=== PATIENT | female | born 1945 | race Asian ===

== ENCOUNTER 2016-08-04 08:06 | Day surgery (SDC) | payer OTHER ==
--- NOTE | 2016-08-03 13:18 | PREOPHP ---
DATE OF ADMISSION: 08/04/2016 HISTORY OF PRESENT ILLNESS: This 71-year-old patient is admitted for elective cataract surgery of t he right eye. Patient has had progressive deterioration of vision in both eyes and previously under went cataract surgery of the left eye in December 2015. The patient denies prior history of eye dis ease or injury. She does have a history of hypertension, asthma, kidney disease, and gout. CURRENT MEDICATIONS: Include: 1. Losartan. 2. Potassium chloride. 3. Allopurinol. 4. Carvedilol. 5. Iron sulfate. 6. Lipitor. 7. Advair. ALLERGIES: PATIENT IS ALLERGIC TO LISINOPRIL. PHYSICAL EXAMINATION: Visual acuity with best correction is 20/80 in the right eye and 20/30 in the left eye. Slit lamp examination reveals nuclear sclerotic and posterior subcapsular cataract in th e right eye and a posterior chamber intraocular lens in the left eye. Applanation tonometry is 16 m mHg. Examination of the retina is within normal limits. DIAGNOSIS: Cataract, right eye. PLAN: Cataract extraction with lens implant, right eye. The risks and alternatives to the surgery have been discussed with the patient as well as the hope for improvement of visual acuity leading to a greater ability to perform activities of daily living. The patient understands this and agrees t o proceed with surgery. Dictated By: HOLLY VERA/IKE Conf#: [id number] DID#: [id number]
[~2016-08-04] VITALS: Ht 149.9 cm; Wt 41.2 kg
[~2016-08-04 08:06] MED LIST: ALLO100T PO; AMLO5TAB4 PO; CARV12.579 PO; DIPH25CA42 PO; FER325 PO; FLUT1AER INHALATION; LOSA50TA6 PO
[2016-08-04] MEDS ORDERED: BUDE6HFA INHALATION (08:53)
[2016-08-04] MEDS ORDERED: ATOR20TA38 PO (08:54)
[2016-08-04] MEDS ORDERED: CLON-379 PO (08:55)
[2016-08-04] MEDS ORDERED: KENC1 TOP (08:55)
[2016-08-04] MEDS ORDERED: CLOT15CR6 TOP (08:55)
[2016-08-04 09:23] VITALS: Ht 149.9 cm; Wt 41.2 kg
[2016-08-04 09:25] VITALS: BP 145/67; PULSE 75; RESP 18
[2016-08-04] MEDS ORDERED: CYCLOPENTOLATE/PHENYLEPH 2 ML OPH OPER SCH (09:30)
[2016-08-04] MEDS ORDERED: TROPICAMIDE 1% 2 ML OPH OPER SCH (09:30)
[2016-08-04] MEDS ORDERED: DICLOFENAC 0.1% 2.5 ML OPH OPER SCH (09:30)
[2016-08-04] MEDS ORDERED: CIPROFLOXACIN 0.3% 2.5 ML OPH OPER SCH (09:30)
[2016-08-04] MEDS ORDERED: CEFAZOLIN 1 GM INJ ONE (09:44)
[2016-08-04] MEDS ORDERED: LIDOCAINE 4% (MPF) 5 ML INJ ONE (09:44)
[2016-08-04] MEDS ORDERED: GENTAMICIN 80 MG INJ ONE (09:44)
[2016-08-04] MEDS ORDERED: CARBACHOL 0.01% 1.5 ML OPH INJ ONE (09:44)
[2016-08-04] MEDS ORDERED: DEXAMETHASONE 4 MG/ML 1 ML INJ ONE (09:44)
[2016-08-04] MEDS ORDERED: EPINEPHrine 1 MG INJ ONE (09:44)
[2016-08-04] MEDS ORDERED: HYALURONATE/CHONDROITIN 1ML OPH INJ ONE (09:45)
[2016-08-04] MEDS ORDERED: CARBACHOL 0.01% 1.5 ML OPH INJ IO ONE (09:51)
[2016-08-04] MEDS ORDERED: CEFAZOLIN 1 GM INJ INJ ONE (09:51)
[2016-08-04] MEDS ORDERED: HYALURONATE/CHONDROITIN 1ML OPH INJ IO ONE (09:51)
[2016-08-04] MEDS ORDERED: DEXAMETHASONE 4 MG/ML 1 ML INJ INJ ONE (09:51)
[2016-08-04] MEDS ORDERED: PROPOFOL 20 ML ONE (09:53)
[2016-08-04] MEDS ORDERED: hydrALAzine 20 MG INJ IV PRN (10:30)
[2016-08-04] MEDS ORDERED: ONDANSETRON 4 MG INJ IV PRN (10:30)
[2016-08-04] MEDS ORDERED: HYDROmorphONE (0.2 MG/ML) 10ML SYG IV PRN ×3 (10:30)
[2016-08-04] MEDS ORDERED: FENTAnyl 50 MCG/ML VIAL IV PRN ×2 (10:30)
[2016-08-04] MEDS ORDERED: LABETALOL HCL 20MG INJ IV PRN (10:30)
[2016-08-04] MEDS ORDERED: MEPERIDINE 25 MG INJ IV PRN (10:30)
[2016-08-04 10:35] VITALS: BP 162/67; PULSE 77; RESP 20
[2016-08-04 10:40] VITALS: BP 157/65; PULSE 72; RESP 12
[2016-08-04 10:44] VITALS: BP 156/66; PULSE 72; RESP 13
[2016-08-04 11:17] VITALS: BP 158/66; PULSE 77; RESP 16
--- NOTE | 2016-08-04 11:40 | OPR ---
DATE OF OPERATION: 08/04/2016 PREOPERATIVE DIAGNOSIS: Cataract, right eye. POSTOPERATIVE DIAGNOSIS: Cataract, right eye. OPERATION PERFORMED: Cataract extraction with lens implant, right eye. SURGEON: Holly Nguyen MD ANESTHESIA: Local standby. ANESTHESIOLOGIST: Dr. Grullon. OPERATION: Phacoemulsification with posterior chamber intraocular lens implant, right eye. PROCEDURE: The patient was brought to the operating room and placed on the table with an IV in plac e and the patient attached to an elevator examiner. Oxygen was given via face mask. After some intravenous sedation was administered, local anesthesia was given using Xylocaine 2% with epinephrine, mixed with Marcaine 0.5%. This was given in a lid block and retrobulbar injection. The patient was then prepped and draped in the usual sterile manner. A wire lid speculum was inserted between the lids of the right eye. A Superblade was used to enter t he anterior chamber at the corneoscleral limbus at the 10:30 o'clock position. A separate incision w as made using a 3.0-mm keratome which entered the corneoscleral junction at the 12 o'clock position. Through this 3-mm opening, an irrigating cystitome was introduced into the anterior chamber. The ch naz was filled with Viscoat and an anterior capsulotomy was performed. Balanced salt solution was then used for hydrodissection of the lens. A phacoemulsification handpiece was then brought into th e field and introduced into the anterior chamber. The lens nucleus was emulsified using a deep groov e and cracking the nucleus into quadrants. Following this, each quadrant was aspirated and emulsifie d at the pupillary margin. After this was completed, the irrigation/aspiration handpiece was brought to the field, introduced i nto the posterior chamber, and the lens cortical material was removed. When this was completed, maricruz tional Viscoat was injected into the anterior and posterior chambers. The 3-mm opening had its internal lips enlarged, and then the posterior chamber intraocular lens katie suring 20.5 diopters (Bausch and Lomb model LI61AO) was then injected into the posterior chamber usi ng the lens injector system. After the leading haptic was introduced into the capsular bag and the l ens optic was present in the center of the eye, the injector was removed and the trailing haptic was grasped with non-toothed forceps and introduced into the capsular fold superiorly. A Sinskey hook w as then used to rotate the intraocular lens so that the lips were oriented in the horizontal meridia n. One 10-0 nylon suture was placed across the wound. Prior to tying, the irrigation/aspiration handpiece was reintroduced into the anterior chamber to re move the Viscoat. Miochol was instilled to constrict the pupil, and then the 10-0 nylon suture was t ied. The ends were cut short and then the knot was buried. Then, 0.5 mL of dexamethasone and 0.5 mL of Ancef were injected into the sub-Tenon space in the infe rior fornix. Ciloxan drops were then placed on the surface of the eye. The speculum was removed and a patch was applied. Once the phacoemulsification was begun, it was noted that the nucleus was extremely hard and the ult rasonic setting was set to a higher setting in order to emulsify the nuclear material. The patient then left the operating room in satisfactory condition. Dictated By: HOLLY VERA/IKE Conf#: [id number] DID#: [id number]
== END 2016-08-04 11:42 | disposition home or self-care (01) ==
LOC: SDS 08:06
PROVIDERS: ATTEND Ophthalmology
DX: H25.11 Age-related nuclear cataract, right eye (principal); I12.9 Hypertensive chronic kidney disease with stage 1 through stage 4 chronic kidney disease, or unspecified chronic kidney disease; N18.3 Chronic kidney disease, stage 3 (moderate); E78.5 Hyperlipidemia, unspecified; J45.909 Unspecified asthma, uncomplicated
CPT/HCPCS: 66984; J0171; J0690; J1100; J1580; V2632; Z7512; Z7610